=== PATIENT | female | born 1970 | race Caucasian/White ===

== ENCOUNTER 2023-09-14 21:38 | Emergency (ER) | payer BC ==
[~2023-09-14] VITALS: Ht 162.6 cm; Wt 95.3 kg
[~2023-09-14 21:38] MED LIST: CEFU250T85 PO; METH-776 PO
[2023-09-14 21:59] VITALS: BP_SYST 133; PULSE 78; RESP 20; TEMP 98.1; O2SAT 94
[2023-09-14] MEDS: ALBUTEROL SULFATE 0.083% 2.5 MG/3 ML VIAL.NEB INH ONE (23:02)
[2023-09-14] MEDS: IPRATROPIUM BROM 0.5 MG/2.5 ML VIAL.NEB (ATROVENT) INH ONE (23:02)
[2023-09-14] MEDS ORDERED: ZIT250 PO (23:46)
[2023-09-15 00:03] VITALS: BP_SYST 130; PULSE 75; RESP 18; TEMP 98.1; O2SAT 95
== END 2023-09-15 00:03 | disposition home or self-care (01) ==
LOC: SED 21:38
DX: J20.9 Acute bronchitis, unspecified (principal); J45.909 Unspecified asthma, uncomplicated; Z91.040 Latex allergy status; Z79.899 Other long term (current) drug therapy; Z79.2 Long term (current) use of antibiotics
CPT/HCPCS: 71045; 94640; 99283